=== PATIENT | female | born 1960 | race Two or more races ===

== ENCOUNTER 2025-03-08 06:16 | Day surgery (SDC) | payer OTHER ==
[2025-03-05 09:31] LABS: Hematocrit 41.3 % (36.0-46.0); Hemoglobin 13.8 g/dL (12.2-16.2); Mean Corpuscular Hemoglobin 28.9 pg (28.0-32.0); Mean Corpuscular Volume 86.6 fL (80.0-100.0); Nucleated Red Blood Cells % 0.0 %
[2025-03-05 09:47] LABS: Urine Protein, UAD Negative (Negative)
[2025-03-05 10:15] LABS: Albumin 4.3 g/dL (3.2-4.8); Alkaline Phosphatase 80 U/L (46-116); Anion Gap 9 (5-15); BUN/Creatinine Ratio 13.5 (10.0-20.0); Bilirubin, Total 0.7 mg/dL (0.2-1.0); Blood Urea Nitrogen 14 mg/dL (9-23); Calcium 9.1 mg/dL (8.7-10.4); Carbon Dioxide 28 mmol/L (20-31); Chloride 105 mmol/L (98-107); Glucose 92 mg/dL (74-106); Potassium 4.0 mmol/L (3.5-5.1); Sodium 142 mmol/L (136-145); Total Protein 7.2 g/dL (5.7-8.2)
[2025-03-05 10:17] LABS: Alanine Aminotransferase 55 U/L (7-40)
[~2025-03-08] VITALS: Ht 167.6 cm; Wt 72.6 kg
[~2025-03-08 06:16] MED LIST: AMLO1TAB21 PO; CHOL25CH3 PO; ESCI5TAB PO; HYDR12.59 PO; MAGN64TA3 PO; PRAV20TA3 GT; TOPI100T68 PO
[2025-03-08] MEDS ORDERED: ceFAZolin 2 GM/D5W50ml 50 ML IV ONE (06:18)
[2025-03-08] MEDS ORDERED: BUPIVACAINE 0.5% P/F INJ 10 ML VIAL ONE (06:47)
[2025-03-08] MEDS ORDERED: LIDOCAINE HCL 2% TOP JELLY 5ML TOP ONE (06:52)
--- NOTE | 2025-03-08 06:54 | DVH ---
CHEST RADIOGRAPH Indication: SURGERY Technique: Single frontal view of the chest was obtained COMPARISON: None FINDINGS: Lines and Tubes: None Lungs: Clear Pleura: No effusion. No pneumothorax. Cardiomediastinal contours: Unremarkable Bones: Unremarkable IMPRESSION: No acute disease.
[2025-03-08] MEDS ORDERED: ROCURONIUM 10MG/ML 10ML VIAL IV ONE (06:56)
[2025-03-08] MEDS ORDERED: PROPOFOL 10 MG/ML 20 ML IV ONE (06:56)
[2025-03-08] MEDS ORDERED: GLYCOPYRROLATE 0.2 MG/ML 1ML VIAL ONE (06:56)
[2025-03-08] MEDS ORDERED: LIDOCAINE 1% INJ PF 5ML AMP ONE (06:57)
[2025-03-08] MEDS ORDERED: SUGAMMADEX 200mg/2ml Vial (100MG/ML) IV ONE (06:57)
[2025-03-08] MEDS ORDERED: ONDANSETRON HCL 4 MG/2 ML VIAL ONE (06:57)
[2025-03-08] MEDS ORDERED: KETOROLAC TROMETH 30 MG/ML 1ML VIAL ONE (06:57)
[2025-03-08] MEDS ORDERED: LIDOCAINE 2% (LOCAL ANESTH.) PF 5ml SDV ONE (06:57)
[2025-03-08] MEDS: CELECOXIB 100 MG CAP PO ONE (07:00)
[2025-03-08] MEDS: ACETAMINOPHEN IV 1000 MG/100ML (10MG/ML) IV ONE (07:00)
[2025-03-08] MEDS: GABAPENTIN 300 MG CAP PO ONE (07:00)
[2025-03-08] MEDS ORDERED: fentaNYL CITRATE 100 MCG/2 ML VL ONE (07:29)
[2025-03-08] MEDS: ROPIVACAINE 0.5% (5MG/ML) 20ML AMPULE IJ ONE (08:52)
[2025-03-08 09:10] VITALS: PULSE 80; RESP 17; TEMP 97.3
[2025-03-08] MEDS ORDERED: NALOXONE HCL 0.4 MG/ML VIAL IV PRN (09:15)
[2025-03-08] MEDS ORDERED: fentaNYL CITRATE 100 MCG/2 ML VL IV PRN (09:15)
[2025-03-08] MEDS ORDERED: ONDANSETRON HCL 4 MG/2 ML VIAL IV PRN (09:15)
[2025-03-08] MEDS ORDERED: FLUMAZENIL 0.1 MG/ML INJ 10ML MDV IV PRN (09:15)
[2025-03-08] MEDS ORDERED: HYDROmorphone HCL 2 MG/ML VL/or syr IV PRN (09:15)
[2025-03-08] MEDS ORDERED: hydrALAZINE HCL 20 MG/ML VL IV PRN (09:15)
--- NOTE | 2025-03-08 09:49 | DVHOP2 ---
Discharge Orders Discharge Orders DISCHARGE WHEN CRITERIA MET DISCHARGE WHEN CRITERIA MET. Operative Rep- Outpatient Operative Report PRE-OP DIAGNOSIS: Left shoulder rotator cuff tear Left shoulder biceps tendinitis Left shoulder subacromial impingement POST-OP DIAGNOSIS: Same [place] protocol followed: Yes ESTIMATED BLOOD LOSS: Minimal PROCEDURE: Left shoulder arthroscopic rotator Cuff repair Left shoulder arthroscopic capsulorrhaphy with humerus side advanced in the subscapularis tendon Left shoulder arthroscopic biceps tenodesis Left shoulder arthroscopic subacromial decompression acromioplasty Left shoulder arthroscopic biologic augmentation Left shoulder arthroscopic AC joint resection distal clavicle resection complaining technique 1 cm SURGEON/VIDEO PRODUCTION SPECIALIST: Moustapha BERGERON ANESTHESIA: General INFORMED CONSENT: Informed Consent: Discussed all inherent risks, complications, and alternatives treatments with the patient. Patient has agreed to proceed with the procedure. I have reviewed all pre-operative assessments including Labs, EKGs, and radiographic images that has been performed. Patient is an appropriate candidate for the outpatient surgical center procedure. The patient agrees to surgical treatment of the left upper extremity she has failed conservative measures with physical therapy activity modification has ongoing pain of the left shoulder based on these parameters the patient was educated on the risks and benefits of surgical and nonsurgical treatment of the left upper extremity The patient was seen in the preoperative holding of the left lower extremity was marked the patient was seen in the preoperative holding of the left upper extremity was prepped and draped in the standard fashion Ancef was given for infection prophylaxis TXA was given for bleeding prophylaxis the left upper extremity was then prepped and draped in the standard fashion once it was then done a posterior portal was made anterior portal was made under direct visualization of the glenohumeral joint was then visualized there was no cartilage changes noted in the glenohumeral joint of the patient has a operative border subscapularis tendon tear I decorticated of the upper border of the subscapularis tendon tear once I was then done I decorticated that on followed by luggage tagged with the 1st pass scorpion once I was then done I also tagged the biceps tendon which had hourglass deformity at the insertion site of the superior labrum once I was then done it was then released of the inner biceps insertion site and then on an a to a luggage tag [id number] arthroscopic biceps tenodesis and upper borders capsulorrhaphy with humeral side advancement of subscapularis tendon once it was then completed in the appropriate manner attention was then turned with the saurav and marked PDS suture with a on 0 PDS and once I was then done the rotator cuff was then marked with a PDS a subacromial decompression and acromioplasty along with a distal clavicle resection with a coplaning technique with a distal clavicle resection was then completed in the appropriate manner once it was then done with a complaint of tingling once I was then completed in the appropriate manner on the patient had almost full- thickness rotator cuff tear was then recorded on the greater tuberosity followed by 2.9 mm all suture anchor and passed with 2 passes and then placed in through a lateral row anchor for an arthroscopic rotator cuff repair once I was then completed with the appropriate rotator cuff repair repair of the anterior 475 osteo anchor biologic augment was brought through the anterior portal for 10 for tendon ayana once I was then done the portal sites were closed with 2-0 Monocryl sterile dressing was then applied in the subacromial decompression was then completed with an RF Wand and shaver was also completed portal sites were closed with 2-0 Monocryl sterile dressing was then applied the patient will be nonweightbearing on the left upper extremity the patient can DC the sling and 4 weeks' time and then they could the patient is going to do full range of motion from 4 weeks to 10 weeks and strength training of the 10 week bryce. MOUSTAPHA KLINE MD Mar 08, 2025 09:49
[2025-03-08 09:55] VITALS: BP 121/75; PULSE 65; RESP 15; O2SAT 97
== END 2025-03-08 10:50 | disposition home or self-care (01) ==
LOC: SUR 06:16
PROVIDERS: ATTEND Orthopaedic Surgery
DX: M75.122 Complete rotator cuff tear or rupture of left shoulder, not specified as traumatic (principal); M75.22 Bicipital tendinitis, left shoulder; M25.812 Other specified joint disorders, left shoulder; G89.18 Other acute postprocedural pain; I10 Essential (primary) hypertension; G89.29 Other chronic pain; G43.909 Migraine, unspecified, not intractable, without status migrainosus; F41.9 Anxiety disorder, unspecified; Z79.899 Other long term (current) drug therapy; Z90.710 Acquired absence of both cervix and uterus; Z98.890 Other specified postprocedural states; Z87.891 Personal history of nicotine dependence
CPT/HCPCS: 29806; 29824; 29826; 29827; 29828; 36415; 64415; 71045; 80053; 81001; 85025; 85730; C1713; J0169; J0690; J1100; J1885; J2003; J2405; J2704; J2795; J3490; A4565; J0131